=== PATIENT | male | born 1980 | race Hispanic/Latino ===

== ENCOUNTER 2022-01-08 12:45 | Inpatient (IN) | payer OTHER ==
[2022-01-08 13:53] LABS: #Lymphocytes 0.8 thou/uL (1.20-3.40); #Monocytes 0.7 thou/uL (0.11-0.59); #Neutrophils 6.5 thou/uL (1.40-6.50); %Basophils 0.5 % (0.0-1.0); %Eosinophils 0.3 % (0.0-10.0); %Lymphocytes 9.4 % (21.0-51.0); %Monocytes 8.3 % (0.0-10.0); %Neutrophils 81.5 % (42.0-75.0); Hemoglobin 15.3 g/dL (14.0-18.0); Mean Corpuscular HGB CONC 34.6 g/dL (32.0-36.0); Mean Corpuscular Hemoglobin 31.8 pg (27.0-31.0); Mean Corpuscular Volume 91.8 fL (78.0-98.0); Mean Platelet Volume 8.2 fL (7.4-10.4); Platelet Count 211 thou/uL (130-400); RBC Distribution Width 11.4 % (11.5-14.5); Red Blood Cell (RBC) Count 4.83 mill/uL (4.70-6.10); White Blood Cell (WBC) Count 7.9 thou/uL (4.8-10.8)
[2022-01-08 14:07] LABS: Acetaminophen Less than 10.0 mcg/mL (10.0-30.0); Alcohol Less than 10 mg/dL (Less than 10); Salicylate Less than 8.0 mg/dL (15.0-30.0)
[2022-01-08 14:16] LABS: ALT (SGPT) 23 U/L (8-55); AST (SGOT) 23 U/L (5-34); Albumin 4.8 g/dL (3.5-5.0); Alkaline Phosphatase 43 U/L (40-110); Anion Gap 15 mmol/L (10-20); BUN (Urea Nitrogen) 13 mg/dL (8.9-20.6); Bilirubin, Total 0.9 mg/dL (0.2-1.2); Calc. Creatinine Clearance 0 mL/min (70-130); Calcium 9.9 mg/dL (7.8-10.44); Carbon Dioxide 19 mmol/L (22-29); Chloride 107 mmol/L (98-107); Estimated GFR 92; Glucose 110 mg/dL (70-105); Potassium 4.4 mmol/L (3.5-5.1); Protein, Total 7.8 g/dL (6.0-8.3); Sodium 137 mmol/L (136-145)
[2022-01-08] MEDS ORDERED: Atropine Sulfate 1 mg/10 ml Syringe ONE ×4 (14:38→15:57)
[2022-01-08] MEDS ORDERED: CALCIUM GLUC 1GM/NS 50ML BAG ONE (14:38)
[2022-01-08] MEDS ORDERED: Calcium Gluc 4.6 MEQ/10 ML (100 MG/ML) ONE (14:39)
[2022-01-08] MEDS ORDERED: EPINEPHrine 1 MG/ML AMP ONE (14:44)
[2022-01-08 14:52] LABS: Amphetamine Not Detected (NotDetected); Barbiturates Screen Not Detected (NotDetected); Benzodiazepine Screen Not Detected (NotDetected); Cocaine Metabolite Screen Not Detected (NotDetected); Methadone Not Detected (NotDetected); Methamphetamine Not Detected (NotDetected); Opiate Screen Not Detected (NotDetected); Oxycodone Screen Not Detected (NotDetected); Phencyclidine (PCP) Not Detected (NotDetected); THC/Cannabinoid Screen Not Detected (NotDetected); Tricyclic Screen Not Detected (NotDetected)
[2022-01-08] MEDS ORDERED: EPINEPHrine 1 MG/ML VIAL ONE ×2 (15:04→15:05)
[2022-01-08] MEDS ORDERED: Sodium Chloride 0.9% 1,000 ML IV SCH (16:30)
[2022-01-08 16:34] LABS: SARS-CoV-2 NAA Rapid Test Not Detected (NotDetected)
[2022-01-08] MEDS ORDERED: Insulin Regular 300 UNITS/3 ML VIAL SC SCH (17:45)
[2022-01-08] MEDS ORDERED: Dextrose 50% Abboject 50 ML SYRINGE SLOW IVP SCH (17:45)
[2022-01-08] MEDS ORDERED: Dextrose 5 %-0.45 % NaCl 1,000 ML IV SCH (17:45)
[2022-01-08] MEDS ORDERED: HUMULIN R 100 UNITS in Sodium Chloride 0.9% 100 ML IVPB SCH (17:45)
[2022-01-08] MEDS ORDERED: Dextrose 10% in Water 1,000 ML IV SCH (19:45)
[2022-01-08] MEDS ORDERED: Dextrose 5% in Water 1,000 ML IV PRN (19:59)
[2022-01-08] MEDS ORDERED: Atropine Sulfate 1 mg/10 ml Syringe IVP SCH (20:15)
[2022-01-08] MEDS ORDERED: Sodium Bicarb 50 MEQ/50 ML VIAL IVP SCH (20:15)
[2022-01-08] MEDS ORDERED: Electrolyte Replacement Protocol FS PRN (20:15)
[2022-01-08] MEDS ORDERED: Sodium Bicarb 50 MEQ/50 ML Abboject 8.4% SYRINGE IVP SCH (20:30)
[2022-01-08] MEDS: Dextrose 50% Abboject 50 ML SYRINGE SLOW IVP PRN ×5 (20:45→22:55)
[2022-01-08 20:54] LABS: #Basophils 0.1 thou/uL (0.0-0.2); #Eosinphils 0.1 thou/uL (0.0-0.7); #Lymphocytes 1.9 thou/uL (1.20-3.40); #Monocytes 0.3 thou/uL (0.11-0.59); %Basophils 0.5 % (0.0-1.0); %Eosinophils 0.6 % (0.0-10.0); %Lymphocytes 18.2 % (21.0-51.0); %Monocytes 3.1 % (0.0-10.0); %Neutrophils 77.5 % (42.0-75.0); Hemoglobin 15.4 g/dL (14.0-18.0); Mean Corpuscular Hemoglobin 31.7 pg (27.0-31.0); Mean Corpuscular Volume 93.3 fL (78.0-98.0); Mean Platelet Volume 8.2 fL (7.4-10.4); Platelet Count 247 thou/uL (130-400); RBC Distribution Width 11.5 % (11.5-14.5); Red Blood Cell (RBC) Count 4.84 mill/uL (4.70-6.10); White Blood Cell (WBC) Count 10.3 thou/uL (4.8-10.8)
[2022-01-08] MEDS: HUMULIN R 500 UNITS in Sodium Chloride 0.9% 500 ML IVPB SCH (20:54)
[2022-01-08 20:56] LABS: Actual Bicarbonate (HCO3a) 26.6 mEq/L (22-28); Base Excess (BEa) 1.5 mEq/L (-2.0 to +3.0); CO2 Tension 43.6 mmHg (35.0-45.0); Calcium, Ionized (arterial) 1.24 mmol/L (1.12-1.30); Carboxyhemoglobin (COHb) 0.3 gm% (0.0-3.0); Hemoglobin (Hb) 15.3 g/dL (14.0-18.0); O2 Tension (PaO2), arterial 88.7 mmHg (80.0-100.0); Potassium - ABG Lab 3.39 mmol/L (3.70-5.30)
[2022-01-08 20:57] LABS: Puncture Site LRA
[2022-01-08 21:06] LABS: Magnesium 2.2 mg/dL (1.6-2.6)
[2022-01-08 21:11] LABS: ALT (SGPT) 24 U/L (8-55); AST (SGOT) 23 U/L (5-34); Albumin 4.5 g/dL (3.5-5.0); Alkaline Phosphatase 42 U/L (40-110); BUN (Urea Nitrogen) 16 mg/dL (8.9-20.6); Bilirubin, Total 1.1 mg/dL (0.2-1.2); Calc. Creatinine Clearance 0 mL/min (70-130); Calcium 9.9 mg/dL (7.8-10.44); Carbon Dioxide 23 mmol/L (22-29); Estimated GFR 86; Globulin 2.9 g/dL (2.4-3.5); Protein, Total 7.4 g/dL (6.0-8.3)
[2022-01-08 21:13] LABS: Phosphorus 1.6 mg/dL (2.3-4.7)
[2022-01-08 21:17] LABS: Anion Gap 12 mmol/L (10-20); Chloride 110 mmol/L (98-107); Potassium 3.7 mmol/L (3.5-5.1); Sodium 140 mmol/L (136-145)
[2022-01-08 21:33] LABS: Glucose 41 mg/dL (70-105)
[2022-01-08 21:50] VITALS: BMI 30.1
[2022-01-08] MEDS ORDERED: Potassium Phosphate 15 MMOL in Sodium Chloride 0.9% 100 ML IVPB SCH (22:30)
[2022-01-08] MEDS: EPINEPHrine 4 MG in Dextrose 5% in Water 250 ML IV SCH (22:31)
[2022-01-09] MEDS: STERILE WATER IV SCH ×2 (00:29→15:54)
[2022-01-09] MEDS: DEXTROSE 70% IV SCH ×2 (00:29→15:54)
[2022-01-09] MEDS: WATER IV SCH ×2 (00:29→15:54)
[2022-01-09] MEDS ORDERED: Atropine Sulfate 1 mg/10 ml Syringe IVP PRN (01:06)
[2022-01-09] MEDS: Dextrose 50% Abboject 50 ML SYRINGE SLOW IVP PRN (01:20)
[2022-01-09 01:40] LABS: Anion Gap 11 mmol/L (10-20); BUN (Urea Nitrogen) 15 mg/dL (8.9-20.6); Calc. Creatinine Clearance 122 mL/min (70-130); Calcium 9.4 mg/dL (7.8-10.44); Carbon Dioxide 27 mmol/L (22-29); Chloride 107 mmol/L (98-107); Estimated GFR 87; Potassium 3.7 mmol/L (3.5-5.1); Sodium 141 mmol/L (136-145)
[2022-01-09 01:51] LABS: Glucose 42 mg/dL (70-105)
[2022-01-09] MEDS: NOREPINEPHRINE 8 MG/250 ML-D5W 250 ML IVPB SCH (04:23)
[2022-01-09 04:37] LABS: #Eosinphils 0.1 thou/uL (0.0-0.7); #Lymphocytes 1.4 thou/uL (1.20-3.40); #Monocytes 1.4 thou/uL (0.11-0.59); #Neutrophils 14.6 thou/uL (1.40-6.50); %Basophils 0.1 % (0.0-1.0); %Eosinophils 0.4 % (0.0-10.0); %Lymphocytes 8.2 % (21.0-51.0); %Monocytes 8.1 % (0.0-10.0); %Neutrophils 83.1 % (42.0-75.0); Hemoglobin 16.9 g/dL (14.0-18.0); Mean Corpuscular HGB CONC 34.7 g/dL (32.0-36.0); Mean Corpuscular Volume 92.3 fL (78.0-98.0); Platelet Count 249 thou/uL (130-400); RBC Distribution Width 11.5 % (11.5-14.5); Red Blood Cell (RBC) Count 5.26 mill/uL (4.70-6.10); White Blood Cell (WBC) Count 17.6 thou/uL (4.8-10.8)
[2022-01-09 04:44] LABS: AST (SGOT) 26 U/L (5-34); Albumin 4.1 g/dL (3.5-5.0); Anion Gap 15 mmol/L (10-20); BUN (Urea Nitrogen) 14 mg/dL (8.9-20.6); Bilirubin, Total 1.3 mg/dL (0.2-1.2); Calc. Creatinine Clearance 132 mL/min (70-130); Calcium 9.4 mg/dL (7.8-10.44); Carbon Dioxide 18 mmol/L (22-29); Chloride 108 mmol/L (98-107); Estimated GFR 95; Globulin 3.1 g/dL (2.4-3.5); Glucose 188 mg/dL (70-105); Potassium 4.2 mmol/L (3.5-5.1); Protein, Total 7.2 g/dL (6.0-8.3); Sodium 137 mmol/L (136-145)
[2022-01-09 04:54] LABS: ALT (SGPT) 20 U/L (8-55); Alkaline Phosphatase 47 U/L (40-110)
[2022-01-09] MEDS: EPINEPHrine 4 MG in Dextrose 5% in Water 250 ML IV SCH ×5 (08:03→23:10)
[2022-01-09 08:04] LABS: Anion Gap 9 mmol/L (10-20); BUN (Urea Nitrogen) 13 mg/dL (8.9-20.6); Calc. Creatinine Clearance 120 mL/min (70-130); Calcium 9.1 mg/dL (7.8-10.44); Carbon Dioxide 24 mmol/L (22-29); Chloride 107 mmol/L (98-107); Estimated GFR 85; Glucose 128 mg/dL (70-105); Potassium 3.3 mmol/L (3.5-5.1); Sodium 137 mmol/L (136-145)
[2022-01-09] MEDS: FAT EMULSION IVPB SCH (08:21)
[2022-01-09] MEDS: Enoxaparin Sodium 40 MG/0.4 ML SYRINGE SC SCH (09:02)
[2022-01-09 09:15] LABS: Glucose 104 mg/dL (70-105)
[2022-01-09] MEDS: Potassium Chloride 20 MEQ in Premix Bag 1 BAG IVPB SCH ×2 (10:26→12:13)
[2022-01-09 11:39] LABS: Glucose 68 mg/dL (70-105)
[2022-01-09 11:52] LABS: Glucose 88 mg/dL (70-105)
[2022-01-09 12:56] LABS: Glucose 112 mg/dL (70-105)
[2022-01-09 13:53] LABS: Glucose 92 mg/dL (70-105)
[2022-01-09] MEDS: HUMULIN R 500 UNITS in Sodium Chloride 0.9% 500 ML IVPB SCH (14:30)
[2022-01-09 15:02] LABS: Glucose 157 mg/dL (70-105)
[2022-01-09 15:21] LABS: Glucose 155 mg/dL (70-105)
[2022-01-09 16:06] LABS: Anion Gap 15 mmol/L (10-20); BUN (Urea Nitrogen) 10 mg/dL (8.9-20.6); Calc. Creatinine Clearance 124 mL/min (70-130); Calcium 10.1 mg/dL (7.8-10.44); Carbon Dioxide 19 mmol/L (22-29); Chloride 107 mmol/L (98-107); Estimated GFR 88; Glucose 108 mg/dL (70-105); Potassium 4.4 mmol/L (3.5-5.1); Sodium 137 mmol/L (136-145)
[2022-01-09 17:31] LABS: Glucose 138 mg/dL (70-105)
[2022-01-09 18:29] LABS: Glucose 123 mg/dL (70-105)
[2022-01-09 19:40] LABS: Anion Gap 16 mmol/L (10-20); BUN (Urea Nitrogen) 6 mg/dL (8.9-20.6); Calc. Creatinine Clearance 132 mL/min (70-130); Calcium 9.1 mg/dL (7.8-10.44); Carbon Dioxide 19 mmol/L (22-29); Chloride 107 mmol/L (98-107); Estimated GFR 95; Glucose 117 mg/dL (70-105); Potassium 3.6 mmol/L (3.5-5.1); Sodium 138 mmol/L (136-145)
[2022-01-09 20:19] LABS: Glucose 111 mg/dL (70-105)
[2022-01-09 21:14] LABS: Glucose 104 mg/dL (70-105)
[2022-01-09 22:27] LABS: Glucose 96 mg/dL (70-105)
[2022-01-09 23:18] LABS: Glucose 87 mg/dL (70-105)
[2022-01-10] MEDS: HUMULIN R 500 UNITS in Sodium Chloride 0.9% 500 ML IVPB SCH (01:28)
[2022-01-10] MEDS: Dextrose 50% Abboject 50 ML SYRINGE SLOW IVP PRN (02:51)
[2022-01-10 02:55] LABS: Glucose 59 mg/dL (70-105)
[2022-01-10 03:03] LABS: #Eosinphils 0.1 thou/uL (0.0-0.7); #Lymphocytes 1.6 thou/uL (1.20-3.40); #Monocytes 1.3 thou/uL (0.11-0.59); %Basophils 0.4 % (0.0-1.0); %Eosinophils 0.5 % (0.0-10.0); %Monocytes 10.7 % (0.0-10.0); %Neutrophils 75.4 % (42.0-75.0); Hemoglobin 15.7 g/dL (14.0-18.0); Mean Corpuscular HGB CONC 34.9 g/dL (32.0-36.0); Mean Corpuscular Hemoglobin 31.7 pg (27.0-31.0); Mean Corpuscular Volume 90.9 fL (78.0-98.0); Mean Platelet Volume 7.8 fL (7.4-10.4); Platelet Count 208 thou/uL (130-400); RBC Distribution Width 11.3 % (11.5-14.5); Red Blood Cell (RBC) Count 4.94 mill/uL (4.70-6.10)
[2022-01-10 03:59] LABS: Chloride 107 mmol/L (98-107); Potassium 3.5 mmol/L (3.5-5.1); Sodium 139 mmol/L (136-145)
[2022-01-10 04:00] LABS: Calcium 9.1 mg/dL (7.8-10.44)
[2022-01-10 04:02] LABS: Anion Gap 16 mmol/L (10-20); Carbon Dioxide 20 mmol/L (22-29)
[2022-01-10 04:04] LABS: BUN (Urea Nitrogen) 4 mg/dL (8.9-20.6); Calc. Creatinine Clearance 136 mL/min (70-130); Estimated GFR 99
[2022-01-10 04:10] LABS: Glucose 58 mg/dL (70-105)
[2022-01-10 04:12] LABS: Glucose 103 mg/dL (70-105)
[2022-01-10 05:44] LABS: Glucose 77 mg/dL (70-105)
[2022-01-10] MEDS: WATER IV SCH (05:46)
[2022-01-10] MEDS: STERILE WATER IV SCH (05:46)
[2022-01-10] MEDS: DEXTROSE 70% IV SCH (05:46)
[2022-01-10] MEDS: NOREPINEPHRINE 8 MG/250 ML-D5W 250 ML IVPB SCH (05:58)
[2022-01-10] MEDS: EPINEPHrine 4 MG in Dextrose 5% in Water 250 ML IV SCH (06:44)
[2022-01-10] MEDS ORDERED: Potassium Chloride 40 MEQ in Premix Bag 1 BAG IVPB SCH (07:15)
[2022-01-10] MEDS: Sodium Bicarbonate 50 MEQ in Dextrose 5 %-0.45 % NaCl 1,000 ML IV SCH ×2 (07:30→21:47)
[2022-01-10 07:36] LABS: Glucose 58 mg/dL (70-105)
[2022-01-10 07:49] LABS: Glucose 65 mg/dL (70-105)
[2022-01-10 07:52] LABS: Anion Gap 13 mmol/L (10-20); BUN (Urea Nitrogen) Less than 4 mg/dL (8.9-20.6); Calc. Creatinine Clearance 138 mL/min (70-130); Calcium 9.1 mg/dL (7.8-10.44); Carbon Dioxide 23 mmol/L (22-29); Chloride 106 mmol/L (98-107); Estimated GFR 101; Glucose 64 mg/dL (70-105); Potassium 3.2 mmol/L (3.5-5.1); Sodium 139 mmol/L (136-145)
[2022-01-10 08:44] LABS: Glucose 60 mg/dL (70-105)
[2022-01-10 09:51] LABS: Glucose 65 mg/dL (70-105)
[2022-01-10] MEDS: Enoxaparin Sodium 40 MG/0.4 ML SYRINGE SC SCH (10:10)
[2022-01-10 10:17] LABS: Glucose 60 mg/dL (70-105)
[2022-01-10] MEDS: FAT EMULSION IVPB SCH (11:06)
[2022-01-10 12:06] LABS: Glucose 127 mg/dL (70-105)
[2022-01-10 13:00] LABS: Glucose 120 mg/dL (70-105)
[2022-01-10 14:04] LABS: Glucose 111 mg/dL (70-105)
[2022-01-10 14:09] LABS: Anion Gap 14 mmol/L (10-20); BUN (Urea Nitrogen) 4 mg/dL (8.9-20.6); Calc. Creatinine Clearance 119 mL/min (70-130); Calcium 9.1 mg/dL (7.8-10.44); Carbon Dioxide 24 mmol/L (22-29); Chloride 104 mmol/L (98-107); Estimated GFR 84; Glucose 110 mg/dL (70-105); Potassium 4.9 mmol/L (3.5-5.1); Sodium 137 mmol/L (136-145)
[2022-01-10 15:05] LABS: Glucose 127 mg/dL (70-105)
[2022-01-11 04:19] LABS: #Eosinphils 0.2 thou/uL (0.0-0.7); #Lymphocytes 1.4 thou/uL (1.20-3.40); #Monocytes 1.4 thou/uL (0.11-0.59); #Neutrophils 6.9 thou/uL (1.40-6.50); %Basophils 0.4 % (0.0-1.0); %Lymphocytes 13.9 % (21.0-51.0); %Monocytes 13.8 % (0.0-10.0); %Neutrophils 69.8 % (42.0-75.0); Hemoglobin 13.3 g/dL (14.0-18.0); Mean Corpuscular HGB CONC 33.9 g/dL (32.0-36.0); Mean Corpuscular Hemoglobin 31.3 pg (27.0-31.0); Mean Corpuscular Volume 92.5 fL (78.0-98.0); Mean Platelet Volume 8.2 fL (7.4-10.4); Platelet Count 166 thou/uL (130-400); RBC Distribution Width 11.6 % (11.5-14.5); Red Blood Cell (RBC) Count 4.24 mill/uL (4.70-6.10); White Blood Cell (WBC) Count 9.9 thou/uL (4.8-10.8)
[2022-01-11 04:36] LABS: Anion Gap 12 mmol/L (10-20); BUN (Urea Nitrogen) 13 mg/dL (8.9-20.6); Calc. Creatinine Clearance 113 mL/min (70-130); Calcium 8.8 mg/dL (7.8-10.44); Carbon Dioxide 25 mmol/L (22-29); Chloride 104 mmol/L (98-107); Estimated GFR 80; Glucose 121 mg/dL (70-105); Potassium 4.2 mmol/L (3.5-5.1); Sodium 137 mmol/L (136-145)
[2022-01-11] MEDS: Enoxaparin Sodium 40 MG/0.4 ML SYRINGE SC SCH (08:56)
[2022-01-11 14:57] VITALS: BP 124/74; TEMP 98.3
== END 2022-01-11 17:13 | DRG 917 ==
LOC: ERS 12:45 → EEVIPCON 15:45 → CCU 15:45 → T4-A 01-11 09:04
PROVIDERS: ADMIT Internal Medicine; ATTEND Internal Medicine
PROC: 06HY33Z Insertion of Infusion Device into Lower Vein, Percutaneous Approach (ICD-10-PCS; principal; 2022-01-08)
PROC: 3E033XZ Introduction of Vasopressor into Peripheral Vein, Percutaneous Approach (ICD-10-PCS; 2022-01-08)
DX: T44.7X2A Poisoning by beta-adrenoreceptor antagonists, intentional self-harm, initial encounter (principal); G93.41 Metabolic encephalopathy; R57.8 Other shock; E87.2 Acidosis; T18.8XXA Foreign body in other parts of alimentary tract, initial encounter; T46.4X2A Poisoning by angiotensin-converting-enzyme inhibitors, intentional self-harm, initial encounter; T43.592A Poisoning by other antipsychotics and neuroleptics, intentional self-harm, initial encounter; F31.9 Bipolar disorder, unspecified; I10 Essential (primary) hypertension; E66.9 Obesity, unspecified; F41.9 Anxiety disorder, unspecified; Z20.822 Contact with and (suspected) exposure to COVID-19; E87.6 Hypokalemia; T18.4XXA Foreign body in colon, initial encounter; Y92.89 Other specified places as the place of occurrence of the external cause; Z79.899 Other long term (current) drug therapy
CPT/HCPCS: 36415; 36416; 36600; 74019; 74022; 80048; 80053; 80306; 80307; 82805; 83735; 84100; 85025; 93005; 96361; 96365; 96374; 96375; A4217; J0171; J0461; J0610; J1610; J1650; J1815; J3480; J3490; J7030; J7042; J7070; J7999; U0002